=== PATIENT | female | born 1985 | race Caucasian/White ===

== ENCOUNTER 2022-03-11 13:26 | Outpatient (REF) | payer OTHER, SELFPAY ==
[2022-03-11 13:55] LABS: Binax Internal Control QC Valid; Binax Now Covid-19 Ag Negative (Negative); Binax Performed by: HO.BONILM
== END 2022-03-11 13:27 | disposition home or self-care (01) ==
LOC: HO.HMGCLDS 13:26
DX: Z20.822 Contact with and (suspected) exposure to COVID-19 (principal); J06.9 Acute upper respiratory infection, unspecified
CPT/HCPCS: 87811; C9803